=== PATIENT | female | born 1975 | race Caucasian/White ===

== ENCOUNTER → 2024-06-26 | Outpatient (CLI) | payer BC ==
[2024-06-26 19:34] LABS: Bacterial Vaginosis PCR Negative (NEGATIVE); Candida Group, PCR NOT DETECTED (NOT DETECT); Candida glabrata-krusei, PCR NOT DETECTED (NOT DETECT)
[2024-07-03 14:19] LABS: HPV HIGH RISK BY TMA Not Detected; HPV SOURCE Cervical
== END ==
LOC: LAB 16:50 → LAB SHORT 16:50
PROVIDERS: Family Medicine
DX: Z01.419 Encounter for gynecological examination (general) (routine) without abnormal findings (principal); R30.0 Dysuria
CPT/HCPCS: 87481; 87624; 87661; 87801; G0123

== ENCOUNTER 2024-09-09 08:24 | Day surgery (SDC) | payer BC ==
[~2024-09-09] VITALS: Ht 170.2 cm; Wt 100.2 kg
[~2024-09-09 08:24] MED LIST: Lactated Ringer's 1,000 ML IV SCH; VENL75ER PO
[2024-09-09 09:07] VITALS: BP 114/67
--- NOTE | 2024-09-09 09:17 | NUR ---
History, Chart, Medications and Allergies reviewed before start of procedure. Pre-Op teaching done. Pt verbalizes understanding. Patient states colon prep results DARK YELLOW. Patient States Post-Procedure ride home has been arranged WITH , DM.
[2024-09-09] MEDS ORDERED: propofoL 40 ML IV ONE (09:57)
--- NOTE | 2024-09-09 10:04 | NUR ---
PT UNWILLING TO VERIFY MEDICATION ALLERGIES WITH ME PREPROCEDURE, UNWILLING TO URINATE FOR HCG TEST PREPROCEDURE FOR ME PER POLICY, PT UPSET/YELLING ABOUT BEING IN [place] AND NOT NEEDING TO "GET UP AND PEE FOR YOU". PT REASSURED THIS WAS PER POLICY, NOT BECAUSE I PERSONALLY WANTED THIS. PT TALKED INTO HCG TEST BY SDS CHARGE NURSE. PT REQUESTED FOR ME TO NOT BE INVOLVED IN HER CARE.
--- NOTE | 2024-09-09 10:11 | NUR ---
09/09/24 1011 [place] MONITOR INTACT WITH CONTINUOUS PULSE OXIMETRY, CONTINUOUS END TITAL CO2, 3-LEAD EKG AND INTERMITTENT BLOOD PRESSURE. MAC PER DR. BENSON
[2024-09-09] MEDS ORDERED: propofoL 20 ML IV ONE (10:23)
[2024-09-09 10:42] VITALS: BP 125/89
[2024-09-09 10:45] VITALS: BP 117/78
--- NOTE | 2024-09-09 11:18 | NUR ---
DISCHARGE PT A&OX4/VSS/RA/TALKING/JOSE PO H20/DENIES PAIN/DRESSES SELF, DC INS PROVIDED, PT REP UNDERSTANDING, IV DC'D, LEFT VIA WC WITH RN TO [place] WITH /INVENTORY WORKER, WITH ALL PERSONAL POSSESSIONS.
== END 2024-09-09 23:00 | disposition home or self-care (01) ==
LOC: ORSCMMR 08:24 → ORD 09:30 → ORSCMMR 09:30
PROVIDERS: Internal Medicine Gastroenterology
PROC: 0DBK8ZX Excision of Ascending Colon, Via Natural or Artificial Opening Endoscopic, Diagnostic (ICD-10-PCS; principal; 2024-09-09 09:30)
PROC: 0DBL8ZX Excision of Transverse Colon, Via Natural or Artificial Opening Endoscopic, Diagnostic (ICD-10-PCS; principal; 2024-09-09 09:30)
PROC: 0DBN8ZX Excision of Sigmoid Colon, Via Natural or Artificial Opening Endoscopic, Diagnostic (ICD-10-PCS; principal; 2024-09-09 09:30)
DX: Z12.11 Encounter for screening for malignant neoplasm of colon (principal); D12.3 Benign neoplasm of transverse colon; D12.2 Benign neoplasm of ascending colon; D12.5 Benign neoplasm of sigmoid colon; G47.33 Obstructive sleep apnea (adult) (pediatric); F32.A Depression, unspecified; Z79.899 Other long term (current) drug therapy; F17.210 Nicotine dependence, cigarettes, uncomplicated
CPT/HCPCS: 88305; J2704; J7120

== ENCOUNTER → 2025-06-28 | Outpatient (CLI) | payer BC ==
[~2025-06-28] MED LIST changes: -Lactated Ringer's 1,000 ML IV SCH
[2025-06-29 12:20] LABS: Bacterial Vaginosis PCR Negative (NEGATIVE); Candida Group, PCR NOT DETECTED (NOT DETECT); Candida glabrata-krusei, PCR NOT DETECTED (NOT DETECT)
[2025-06-29 12:57] LABS: Chlamydia Trachomatis Vaginal NOT DETECTED (NOT DETECT); Neisseria Gonorrhoea Vaginal NOT DETECTED (NOT DETECT)
[2025-07-01 08:07] LABS: HIV 1,2 COMBO ANTIGEN/ANTIBODY Negative (Negative)
[2025-07-01 08:51] LABS: HSV 1 GLYCOPROTEIN G AB, IGG 0.11 IV (<=0.89); HSV 2 GLYCOPROTEIN G AB, IGG 7.46 IV (<=0.89)
[2025-07-01 11:56] LABS: HEPATITIS A ANTIBODY, IGM Negative (Negative); HEPATITIS C AB CIA INTERP Negative (Negative); HEPATITIS C ANTIBODY CIA INDEX 0.02 IV
== END ==
LOC: LAB SHORT 16:49 → LAB 16:49
PROVIDERS: Physician Assistant
DX: N89.8 Other specified noninflammatory disorders of vagina (principal); Z20.9 Contact with and (suspected) exposure to unspecified communicable disease
CPT/HCPCS: 80074; 81515; 86695; 86696; 87389; 87491; 87591